=== PATIENT | male | born 1960 | race Caucasian/White ===

== ENCOUNTER 2017-01-03 20:45 | Emergency (ER) | payer MEDICAID, MEDICARE ==
[~2017-01-03] VITALS: Ht 180.3 cm; Wt 148.6 kg
[2017-01-03 20:59] VITALS: BP 122/79
== END 2017-01-03 21:38 | disposition home or self-care (01) ==
LOC: ED 21:30
DX: L03.311 Cellulitis of abdominal wall (principal); M10.9 Gout, unspecified; E66.01 Morbid (severe) obesity due to excess calories; I10 Essential (primary) hypertension; E78.5 Hyperlipidemia, unspecified; I25.2 Old myocardial infarction
CPT/HCPCS: 82962; 99283

== ENCOUNTER 2017-01-05 17:17 | Emergency (ER) | payer MEDICARE ==
[~2017-01-05] VITALS: Ht 180.3 cm; Wt 150.2 kg
[2017-01-05 17:25] VITALS: BP 148/93
[2017-01-05] MEDS ORDERED: LISI-167 PO (17:48)
[2017-01-05] MEDS ORDERED: CARV25TA12 PO (17:48)
[2017-01-05] MEDS ORDERED: CHLO25TA PO (17:48)
[2017-01-05] MEDS ORDERED: ALLO100T30 PO (17:48)
== END 2017-01-05 18:20 ==
LOC: ED 17:41
DX: L03.311 Cellulitis of abdominal wall (principal); E78.5 Hyperlipidemia, unspecified; I10 Essential (primary) hypertension; M19.90 Unspecified osteoarthritis, unspecified site
CPT/HCPCS: 99281

== ENCOUNTER → 2017-01-28 | Outpatient (CLI) | payer MEDICARE ==
[~2017-01-28] MED LIST: ALLO100T30 PO; CARV25TA12 PO; CHLO25TA PO; LISI-167 PO
== END | disposition home or self-care (01) ==
LOC: WOUND 09:11
PROVIDERS: ATTEND Physician Assistant
DX: L89.893 Pressure ulcer of other site, stage 3 (principal); E66.01 Morbid (severe) obesity due to excess calories; I10 Essential (primary) hypertension; I25.2 Old myocardial infarction; J44.9 Chronic obstructive pulmonary disease, unspecified; F17.210 Nicotine dependence, cigarettes, uncomplicated; E78.5 Hyperlipidemia, unspecified; M19.90 Unspecified osteoarthritis, unspecified site; Z68.41 Body mass index [BMI] 40.0-44.9, adult
CPT/HCPCS: 97597; G0463; WOU0463

== ENCOUNTER → 2017-02-04 | Outpatient (CLI) | payer MEDICARE | END | disposition home or self-care (01) | LOC: WOUND 09:06 | PROVIDERS: ATTEND Physician Assistant | DX: L89.893 Pressure ulcer of other site, stage 3 (principal); E66.01 Morbid (severe) obesity due to excess calories; I25.2 Old myocardial infarction; I10 Essential (primary) hypertension; J44.9 Chronic obstructive pulmonary disease, unspecified; E78.5 Hyperlipidemia, unspecified; F17.210 Nicotine dependence, cigarettes, uncomplicated; Z68.41 Body mass index [BMI] 40.0-44.9, adult; M19.90 Unspecified osteoarthritis, unspecified site | CPT/HCPCS: 97597 ==

== ENCOUNTER → 2017-02-18 | Outpatient (CLI) | payer MEDICARE | END | disposition home or self-care (01) | LOC: WOUND 08:59 | PROVIDERS: ATTEND Physician Assistant | DX: L89.893 Pressure ulcer of other site, stage 3 (principal); E66.01 Morbid (severe) obesity due to excess calories; I25.2 Old myocardial infarction; I10 Essential (primary) hypertension; J44.9 Chronic obstructive pulmonary disease, unspecified; F17.210 Nicotine dependence, cigarettes, uncomplicated; E78.5 Hyperlipidemia, unspecified; M19.90 Unspecified osteoarthritis, unspecified site; Z68.41 Body mass index [BMI] 40.0-44.9, adult | CPT/HCPCS: G0463; WOU0463 ==

== ENCOUNTER → 2017-03-30 | Outpatient (CLI) | payer MEDICARE | END | disposition home or self-care (01) | LOC: CARD 09:00 | PROVIDERS: ATTEND Internal Medicine Cardiovascular Disease | DX: I25.10 Atherosclerotic heart disease of native coronary artery without angina pectoris (principal) | CPT/HCPCS: 93017 ==

== ENCOUNTER → 2018-05-25 | Outpatient (CLI) | payer MEDICARE | END | disposition home or self-care (01) | LOC: RAD 16:58 | PROVIDERS: ATTEND Family Medicine | DX: R59.0 Localized enlarged lymph nodes (principal); M79.662 Pain in left lower leg ==

== ENCOUNTER 2020-12-09 08:04 | Outpatient (CLI) | payer OTHER | END 2020-12-09 23:59 | disposition home or self-care (01) | LOC: WOUND 08:04 | PROVIDERS: ATTEND Internal Medicine Infectious Disease | DX: L02.231 Carbuncle of abdominal wall (principal); L89.892 Pressure ulcer of other site, stage 2; R21 Rash and other nonspecific skin eruption; G89.29 Other chronic pain; I10 Essential (primary) hypertension; I25.2 Old myocardial infarction; M10.9 Gout, unspecified; J44.9 Chronic obstructive pulmonary disease, unspecified; F17.210 Nicotine dependence, cigarettes, uncomplicated; E66.01 Morbid (severe) obesity due to excess calories; Z68.43 Body mass index [BMI] 50.0-59.9, adult; Z79.82 Long term (current) use of aspirin; Z86.14 Personal history of Methicillin resistant Staphylococcus aureus infection; Z96.653 Presence of artificial knee joint, bilateral | CPT/HCPCS: 87070; 87077; 87186; 87205; 97597; 99204; 99214 ==

== ENCOUNTER 2020-12-16 07:52 | Outpatient (CLI) | payer OTHER | END 2020-12-16 23:59 | disposition home or self-care (01) | LOC: WOUND 07:52 | PROVIDERS: ATTEND Internal Medicine Infectious Disease | DX: L02.231 Carbuncle of abdominal wall (principal); L02.436 Carbuncle of left lower limb; E66.01 Morbid (severe) obesity due to excess calories; R21 Rash and other nonspecific skin eruption; G89.29 Other chronic pain; I10 Essential (primary) hypertension; I25.2 Old myocardial infarction; M10.9 Gout, unspecified; J44.9 Chronic obstructive pulmonary disease, unspecified; F17.210 Nicotine dependence, cigarettes, uncomplicated; Z68.43 Body mass index [BMI] 50.0-59.9, adult; Z79.82 Long term (current) use of aspirin; Z86.14 Personal history of Methicillin resistant Staphylococcus aureus infection; Z96.653 Presence of artificial knee joint, bilateral | CPT/HCPCS: 99213 ==

== ENCOUNTER → 2020-12-30 | Outpatient (CLI) | payer OTHER | END | disposition home or self-care (01) | LOC: WOUND 07:51 | PROVIDERS: ATTEND Nurse Practitioner Family | DX: L02.231 Carbuncle of abdominal wall (principal); L02.436 Carbuncle of left lower limb; R21 Rash and other nonspecific skin eruption; E66.01 Morbid (severe) obesity due to excess calories; G89.29 Other chronic pain; I10 Essential (primary) hypertension; I25.2 Old myocardial infarction; M10.9 Gout, unspecified; J44.9 Chronic obstructive pulmonary disease, unspecified; F17.210 Nicotine dependence, cigarettes, uncomplicated; Z68.43 Body mass index [BMI] 50.0-59.9, adult; Z79.82 Long term (current) use of aspirin; Z86.14 Personal history of Methicillin resistant Staphylococcus aureus infection; Z96.653 Presence of artificial knee joint, bilateral | CPT/HCPCS: 99213 ==